=== PATIENT | female | born 1945 | race Caucasian/White ===

== ENCOUNTER 2016-11-23 11:06 | Day surgery (SDC) | payer MEDICARE ==
[~2016-11-23] VITALS: Ht 165.1 cm; Wt 94.5 kg
[2016-11-23] VITALS (11 sets, daily range): BP systolic 107–135; BP diastolic 49–70; PULSE 50–68; RESP 6–18; O2SAT 96–99
[~2016-11-23 11:06] MED LIST: ATRV10T PO; DOXY100C2 PO; LISI2.5T PO; Lactated Ringer's 1,000 ML IV SCH
[2016-11-23] MEDS ORDERED: Propofol 10,000 mCg/mL 20 mL Inj ONE (11:07)
[2016-11-23] MEDS ORDERED: Dexamethasone 4 mg/mL Inj ONE (11:07)
[2016-11-23] MEDS ORDERED: MetoCLOpramide 5 mg/mL 2 mL Inj ONE (11:07)
[2016-11-23] MEDS ORDERED: fentaNYL-PF 50 mCg/mL 2 mL Inj ONE (11:07)
[2016-11-23] MEDS ORDERED: Ondansetron 2 mg/mL 2 mL Inj ONE (11:07)
[2016-11-23] MEDS ORDERED: 0.9% Sodium Chloride 1,000 ML IV SCH (12:29)
[2016-11-23] MEDS ORDERED: diphenhydrAMINE 25 mg Capsule PO PRN (12:30)
[2016-11-23] MEDS ORDERED: HYDROcodone-APAP 5-325 mg Tablet PO PRN ×2 (12:30→14:05)
[2016-11-23] MEDS ORDERED: HYDROmorphone 1 mg/mL Inj IVPUSH PRN ×2 (12:30→14:20)
[2016-11-23] MEDS ORDERED: Polyethylene Glycol (PEG) 17 Gm Powder PO PRN (12:30)
[2016-11-23] MEDS ORDERED: Ketorolac 15 mg/mL Inj IVPUSH PRN (12:30)
[2016-11-23] MEDS ORDERED: Ondansetron 2 mg/mL 2 mL Inj IVPUSH PRN ×2 (12:30→14:20)
[2016-11-23] MEDS ORDERED: hydrOXYzine Pamoate 25 mg Capsule PO PRN ×2 (12:30→14:05)
[2016-11-23] MEDS ORDERED: Magnesium Hydroxide 10 mL Oral Concentration PO PRN (12:30)
--- NOTE | 2016-11-23 12:45 | PCM.HPANE ---
Patient Data Surgeon Admitting Provider: Attending Provider:Tripp Andrea DO Primary Care Physician:Polly Vincent MD Other Provider:Alma Rosa [place] Anesthesia Reason for Visit Right Torn Medial Meniscus Ht/WT & BMI Height (Feet): 5 Height (Inches): 5 Weight (Kilograms): 94.5 Body Mass Index 34.00 Allergies Coded Allergies: latex (Verified Allergy, Unknown, itching, 11/19/16) Past Anesthesia History Anesthesia History: Denies:: Anesthesia Reactions Diabetes History Hx Diabetes?: No Medications Hypertension Medication: Yes Home Meds Incl Beta Maria Guadalupe: No Reported Medications Lisinopril 2.5 Mg Tablet2.5 Mg PO DAILY 30 Days Ref 0 11/19/16 Doxycycline Hyclate 100 Mg [id number] Mg PO BID 11/19/16 Atorvastatin (Lipitor)10 Mg Tab10 Mg PO DAILY Ref 0 11/19/16 History History of ENT Problems?: No Hx of Heart Problems?: Yes Cardiovascular History: Positive for:: Hypertension Denies:: Heart Murmur Irregular Heartbeat Pacemaker Valvular Heart Disease (echo 2008) Hx of Respiratory Problem?: No Respiratory History: Denies:: Oxygen Administration Use of C-PAP Machine Hx Neurologic Problems?: No Neurological History: Denies:: CVA Dementia Multiple Sclerosis Parkinson's Disease Seizures Hx of GI Problems?: Yes Gastrointestinal History: Positive for:: Gall Bladder Disease (removed) Hx of Problems?: No Female Hx: Denies:: Currently Problems with Breasts? Skin History: Denies:: History Skin Disorders? Pressure Ulcers Hx Musculoskeletal Problems?: Yes Musculoskeletal History: Positive for:: Musculoskeletal Trauma (right knee current admission problem) Osteoarthritis Denies:: Back Injury Joint Replacement Hx of Psycho/Social Problems?: No Hx Surgeries?: Yes (tubal, yanick, ankle fx) Hx Any Other Health Problems?: Yes Other History: Denies:: Cancer Thyroid Disease Hx Diabetes: No Hx Alcohol Use: YesAlcoholic Drinks Per Day: 1-3 drinks weekHx Substance Use: NoHave You Smoked inLast 12 mo: Yes Stop/Bang Treated for Sleep Apnea?: No Do You Have a CPAP Machine?: No S-Snoring: Do You Snore Loudly: No T-Tired: feel tired, fatigued: No O-Obsered: Observed not breath: No P-Blood Pressure: treated: Yes B- Body Mass Index > 35 kg/m2: No A- Age over 50: Yes N- Neck Large Circumference: No G- Gender Male: No KAZ Total Score: 2 KAZ Risk Assessment: Low Risk, <3 Yes Risk Assessment Category Category 1A: Patient has history of documented sleep apnea, and HAS NOT received any narcotic, sedative or anesthesia administration during this stay. Category 1B: Patient has history of documented sleep apnea, and HAS received any narcotic , sedative or anesthesia administration during this stay Category 2: Patient has SUSPECTED Obstructive Sleep Apnea, and HAS received any narcotic , sedative or anesthesia administration during this stay. Category 3: Patient has SUSPECTED Obstructive Sleep Apnea and HAS NOT received narcotic, sedative or anesthesia administration during this stay. Category 4: Outpatient in Procedural Areas with known sleep apnea or who screen positive for High Risk via the STOP/BANG questionnaire. Exam Exam Vital Signs Vital Signs Date Time Temp Pulse Resp B/P Pulse Ox O2 Delivery O2 Flow Rate FiO2 11/23/16 11:39 35.7 55 16 125/67 97 Room Air General Appearance: Oriented X3 HEENT/AIRWAY: MP 2 Lungs: Normal Air Movement Heart: Regular Rate/Rhythm Plan Impression Patient chart reviewed, patient interviewed and anesthestic plan with risks, benefits, and alternatives discussed, and informed consent obtained. NPO Status: 11/23/16 0800 ASA Physical Status: ASA2 Mod Systemic Disease Anesthetic Plan: GA Bene/Risks/Altern/Consents: Yes HP Complete Prior to Induction: Yes Neftali Bush MD Nov 23, 2016 12:45
[2016-11-23] MEDS ORDERED: Lidocaine 2%-Epi 1:100,000 20 mL Inj INFILTRATE ONE (13:04)
[2016-11-23] MEDS ORDERED: Ropivacaine-PF 0.5% 30 mL Inj INFILTRATE ONE (13:07)
[2016-11-23] MEDS ORDERED: Ketorolac 15 mg/mL Inj IVPUSH ONE (14:05)
--- NOTE | 2016-11-23 14:18 | OP ---
[address] [address] OPERATIVE REPORT PATIENT: ANIL SIDDIQUI : 1945 MR#: [id number] ADMIT: 11/23/2016 JOB ID: [id number] DATE OF SURGERY: 11/23/2016 PREOPERATIVE DIAGNOSIS(ES): Right knee torn medial meniscus. POSTOPERATIVE DIAGNOSIS(ES): Right knee torn medial meniscus. PROCEDURE: Right knee video arthroscopy with partial medial meniscectomy. SURGEON: Tripp Andrea DO ANESTHESIA: LMA general. INDICATIONS: The patient is a 71-year-old female who injured her right knee over the summer and has had onset of medial pain ever since. She had an MRI confirming a torn medial meniscus. We discussed treatment options, and she wished to proceed with a knee arthroscopy with partial medial meniscectomy. We discussed the risks, benefits, and possible complications of surgery, including but not limited to injury to nerves and vessels, infection, bleeding, incomplete relief of symptoms, stiffness, need for additional procedures. The patient had good understanding. All questions were answered, and she wished to proceed. PROCEDURE IN DETAIL: The patient was brought to the operating room. She was given a preoperative LMA general anesthetic. The right lower extremity was sterilely prepped and draped. An incision was made over the anterolateral knee at the level of joint line, and the blunt trocar was introduced into the knee. Inspection was undertaken. She was found to have some C3 changes in the patella cartilage. Her trochlea was in good condition. She had some C2 changes in the medial femoral condyle and medial tibial plateau. Her medial meniscus was found to be torn, and medial portal was established under needle localization. Her meniscal tear was resected back to a stable base with a combination of biters and shaver. The anterior cruciate ligament was found to be intact. Her lateral compartment was pristine. The scope was then removed. The portals were closed with interrupted nylon suture. Naropin was added as an adjunct local anesthetic. Sterile dressings were applied. Patient tolerated the procedure well. Blood loss was minimal. POSTOPERATIVE PROTOCOL: Have the patient weightbear to tolerance. Use crutches as needed. Ice and elevate and follow up in two weeks or sooner if needed.
[2016-11-23] MEDS ORDERED: Lactated Ringer's 1,000 ML IV SCH (14:19)
[2016-11-23] MEDS ORDERED: Lactated Ringer's 500 ML IV PRN (14:19)
[2016-11-23] MEDS ORDERED: fentaNYL-PF 50 mCg/mL 2 mL Inj IVPUSH PRN (14:20)
[2016-11-23] MEDS ORDERED: Phenylephrine 10,000 mCg/mL Inj IVPUSH PRN (14:20)
[2016-11-23] MEDS ORDERED: Dexamethasone 4 mg/mL Inj IVPUSH PRN (14:20)
[2016-11-23] MEDS ORDERED: EPHEDrine Sulfate 50 mg/mL Inj IVPUSH PRN (14:20)
[2016-11-23] MEDS ORDERED: MetoCLOpramide 5 mg/mL 2 mL Inj IVPUSH PRN (14:20)
--- NOTE | 2016-11-23 14:23 | PCM.ANEP1 ---
Post Anesthesia Phase 1 PACU Phase 1 Assessment Vital Signs Vital Signs Date Time Temp Pulse Resp B/P Pulse Ox O2 Delivery O2 Flow Rate FiO2 11/23/16 14:10 36.3 57 12 124/57 96 Room Air 11/23/16 14:05 57 16 126/52 96 Room Air 11/23/16 14:00 60 15 123/53 99 Simple Mask 8 11/23/16 13:55 60 9 127/59 99 Simple Mask 8 11/23/16 13:50 61 10 126/50 98 Simple Mask 8 11/23/16 13:45 36.4 68 6 107/ 97 Simple Mask 8 11/23/16 11:39 35.7 55 16 125/67 97 Room Air Anesthetic Administered: GA Level of Alertness: Awake, talking Pain: No Nausea or Vomiting: No Oxygen Delivery: Room Air Lungs: Normal Air Movement Neftali Bush MD Nov 23, 2016 14:23
--- NOTE | 2016-11-23 14:24 | PCM.ANEP2 ---
Post Anesthesia Evaluation ASA/CMS Post Anesthesia VS in Patient's Normal Range?: Yes Resp Stable; Airway Patent?: Yes CV Function & Hydration Stable: Yes Mental Status Recovered?: Yes Pain control Satisfactory?: Yes N/V Control Satisfactory?: Yes Neftali Bush MD Nov 23, 2016 14:24
[2016-11-23] MEDS ORDERED: Insulin Human REGular 300 Unit/3 mL Inj SUBQ SCH (14:30)
[2016-11-23] MEDS ORDERED: CeFAZolin Inj 2 GM in IV Premix 1 EACH IV SCH (16:30)
[2016-11-23] MEDS ORDERED: Sodium Chloride LOK Flush 10 mL Syringe IV SCH (16:30)
[2016-11-23] MEDS ORDERED: Senna-Docusate 8.6-50 mg Tablet PO SCH (20:30)
== END 2016-11-23 23:59 | disposition home or self-care (01) ==
LOC: SAS 11:06
PROVIDERS: ATTEND Orthopaedic Surgery
DX: S83.241A Other tear of medial meniscus, current injury, right knee, initial encounter (principal); I10 Essential (primary) hypertension; F32.9 Major depressive disorder, single episode, unspecified; F17.210 Nicotine dependence, cigarettes, uncomplicated; V87.8XXA Person injured in other specified noncollision transport accidents involving motor vehicle (traffic), initial encounter; Y93.9 Activity, unspecified; Y92.9 Unspecified place or not applicable; Y99.9 Unspecified external cause status; Z90.49 Acquired absence of other specified parts of digestive tract
CPT/HCPCS: 29881; 97116; J1100; J2405; J2765; J2795; J7120